=== PATIENT | male | born 1945 | race Caucasian/White ===

== ENCOUNTER 2017-03-27 13:13 | Emergency (ER) | payer OTHER, BC ==
[2017-03-27 13:21] VITALS: BP 146/80; PULSE 67; TEMP 97.8; BMI 28.3
[2017-03-27] MEDS ORDERED: DIPHTH,PERTUSS(ACELL),TET VAC 0.5 ML VIAL IM ONE (13:51)
[2017-03-27] MEDS ORDERED: AMOX TR/POT CLAV 875MG/125MG TABLETS (FP) PO ONE (13:52)
--- NOTE | 2017-03-27 13:56 | PDOC ---
History of Present Illness - General Chief Complaint: Bite Stated Complaint: DOG BITE RIGHT HAND Time Seen by Provider: 03/27/17 13:18 History Source: Patient Exam Limitations: No Limitations - History of Present Illness Initial Comments: 72 yo M presents with laceration to the hand s/p dog bite. He states that he was putting sweater and boots on his dog, as he pulled on a boot, the dog bit him. This occurred 4 hours prior to arrival in ED. No fever, chills. No redness. He came from his PMD's office, who recommended that he go to ED for tetanus shot and wound care. Dog is up to date on shots. Past History - Past Medical History Allergies/Adverse Reactions: Allergies Allergy/AdvReac Type Severity Reaction Status Date / Time No Known Allergies Allergy Verified 03/27/17 13:18 Home Medications: Ambulatory Orders Aspirin [Ecotrin] 81 mg PO DAILY #0 07/19/15 Atorvastatin Ca [Lipitor] 10 mg PO ASDIR 07/19/15 Ergocalciferol (Vitamin D2) [Vitamin D2] 1 unit PO DAILY 07/19/15 Multivit-Min/FA/Lycopen/Lutein [Centrum Silver Tablet] 1 each PO DAILY 07/19/15 Amoxicillin/Potassium Clav [Augmentin 875-125 Tablet] 1 each PO BID #14 tablet 03/27/17 COPD: No GI Disorders: Yes (HX POLYPS) Hypercholesterolemia: Yes - Surgical History Abdominal Surgery: Yes (HERNIA SX) - Suicide/Smoking/Psychosocial Hx Smoking History: Never smoked Have you smoked in the past 12 months: No Hx Alcohol Use: (occasional) Drug/Substance Use Hx: No Substance Use Type: None Review of Systems - Review of Systems Able to Perform ROS?: Yes Comments:: GENERAL/CONSTITUTIONAL: No fever or chills. No weakness. HEAD, EYES, EARS, NOSE AND THROAT: No change in vision. No ear pain or discharge. No sore throat. MUSCULOSKELETAL: No joint or muscle swelling or pain. No neck or back pain. SKIN: No rash. +Laceration to R hand. NEUROLOGIC: No headache, vertigo, loss of consciousness, or change in strength/ sensation. ENDOCRINE: No increased thirst. No abnormal weight change. HEMATOLOGIC/LYMPHATIC: No anemia, easy bleeding, or history of blood clots. ALLERGIC/IMMUNOLOGIC: No hives or skin allergy. *Physical Exam - Vital Signs Last Vital Signs Temp Pulse Resp BP Pulse Ox 97.8 F 67 18 146/80 99 03/27/17 13:13 03/27/17 13:13 03/27/17 13:13 03/27/17 13:13 03/27/17 13:13 - Physical Exam Comments: GENERAL: Awake, alert, and fully oriented, in no acute distress HEAD: No signs of trauma EYES: PERRLA, EOMI, sclera anicteric, conjunctiva clear EXTREMITIES: Normal range of motion, no edema. No clubbing or cyanosis. No cords, erythema, or tenderness NEUROLOGICAL: Cranial nerves II through XII grossly intact. Normal speech, normal gait SKIN: Warm, Dry, normal turgor, no rashes. R hand with 1 cm laceration to dorsal surface, overlying the 2nd metacarpal. +Oozing blood. Procedures - Laceration/Wound Repair Right Dorsal Hand Wound Length: to 2.5 cm Wound Explored: clean, no foreign body present Wound's Depth, Shape: superficial Irrigated w/ Saline: Yes Anesthesia: 1% Lidocaine Wound Repaired With: Sutures Suture Size/Type: 5:0, nylon Number of Sutures: 2 Sterile Dressing Applied: Yes Progress: Patient tolerated well. +Hemostasis. *DC/Admit/Observation/Transfer Diagnosis at time of Disposition: Hand laceration Qualifiers: Encounter type: initial encounter Foreign body presence: without foreign body Laterality: right Qualified Code(s): S61.411A - Laceration without foreign body of right hand, initial encounter Dog bite Qualifiers: Encounter type: initial encounter Qualified Code(s): W54.0XXA - Bitten by dog, initial encounter - Discharge Dispostion Disposition: HOME Condition at time of disposition: Stable Admit: No - Referrals Referrals: Canelo Woody MD [Primary Care Provider] - - Patient Instructions Printed Discharge Instructions: DI for a Human Bite - Post Discharge Activity
[2017-03-27] MEDS ORDERED: AMOX TR/POT CLAV 875MG/125MG TABLETS (FP) ONE (14:09)
[2017-03-27] MEDS ORDERED: DIPHTH,PERTUSS(ACELL),TET 0.5 ML DISP.SYRIN IM ONE (14:10)
== END 2017-03-27 14:20 | disposition home or self-care (01) ==
LOC: FER 13:13
PROC: 0HQFXZZ Repair Right Hand Skin, External Approach (ICD-10-PCS; principal; 2017-03-27)
PROC: 3E0234Z Introduction of Serum, Toxoid and Vaccine into Muscle, Percutaneous Approach (ICD-10-PCS; 2017-03-27)
DX: S61.411A Laceration without foreign body of right hand, initial encounter (principal); W54.0XXA Bitten by dog, initial encounter; Y93.89 Activity, other specified; Y92.9 Unspecified place or not applicable
CPT/HCPCS: 12001; 90471; 90715; 99283-25

== ENCOUNTER 2022-11-06 04:43 | Day surgery (SDC) | payer OTHER ==
[2022-11-01 13:52] VITALS: BMI 25.0
[~2022-11-06 04:43] MED LIST: BUPIVACAINE HCL/PF 0.5% (5 MG/ML) 30 ML VIAL IJ ONE; LIDOCAINE HCL 1%, 10 MG/ML (20ML VIAL) INF ONE
[2022-11-06] MEDS ORDERED: BUPIVACAINE HCL/PF 0.5% (5MG/ML) 10 ML VIAL ONE (07:08)
[2022-11-06] MEDS ORDERED: LIDOCAINE HCL 1%, 10 MG/ML (20ML VIAL) ONE (07:08)
[2022-11-06] MEDS ORDERED: LIDOCAINE HCL/PF 2% SDV 5ML VIAL ONE (07:20)
[2022-11-06] MEDS ORDERED: DEXAMETHASONE SOD PHOSPHATE 4 MG/1 ML VIAL ONE (07:20)
[2022-11-06] MEDS ORDERED: ceFAZolin SODIUM 1 GM VIAL ONE (07:20)
[2022-11-06] MEDS ORDERED: PROPOFOL 20 ML ONE (07:20)
[2022-11-06] MEDS ORDERED: ONDANSETRON 4 MG/2 ML VIAL ONE (07:20)
[2022-11-06] MEDS ORDERED: oxyCODONE HCL 5 MG TABLET PO PRN ×2 (07:48)
[2022-11-06] MEDS ORDERED: ONDANSETRON 4 MG/2 ML VIAL IVPUSH PRN (07:48)
[2022-11-06] MEDS ORDERED: LACTATED RINGERS SOLUTION 1,000 ML IV SCH (08:00)
[2022-11-06] MEDS ORDERED: ceFAZolin SODIUM 1 GM VIAL IVPB ONE (08:10)
[2022-11-06 09:33] VITALS: RESP 18
[2022-11-06 10:20] VITALS: BP 135/74; PULSE 71; TEMP 97.4
== END 2022-11-06 11:10 | disposition home or self-care (01) ==
LOC: JASU-SURG 04:43
PROVIDERS: ATTEND Orthopaedic Surgery
PROC: 0LB60ZZ Excision of Left Lower Arm and Wrist Tendon, Open Approach (ICD-10-PCS; 2022-11-06)
PROC: 01N50ZZ Release Median Nerve, Open Approach (ICD-10-PCS; principal; 2022-11-06 08:00)
DX: G56.02 Carpal tunnel syndrome, left upper limb (principal); M65.832 Other synovitis and tenosynovitis, left forearm
CPT/HCPCS: 88304-TC; 94760